=== PATIENT | male | born 1950 | race Caucasian/White ===

== ENCOUNTER 2025-04-06 07:49 | Emergency (ER) | payer MEDICARE, OTHER, SELFPAY ==
[2025-04-06 07:59] VITALS: BP 130/76
[2025-04-06] MEDS: ATIVAN 0.5 MG PO (09:33)
[2025-04-06 09:36] VITALS: BP 133/69
[2025-04-06 10:00] VITALS: BP 124/63
--- NOTE | 2025-04-06 11:40 | ED.GENMED ---
History of Present Illness
General
Chief Complaint: Social Service Referral
Source: patient, records and ambulance crew
Exam Limitations: none
Time Seen by Provider: 04/06/25 08:18
Nursing documentation reviewed up to this point in time: agreed with
History of Present Illness
History of Present Illness:
75-year-old male presents emergency department due to combative behavior. He arrives and is somewhat cooperative with exam smells of urine.
Past History
Past History
ED Past Medical History: Hypercholesterolemia and Other (Alzheimer's dementia)
Social History
Tobacco: Non-smoker
Alcohol: None
Drug: None
Living: care home
Employment: Retired
Review of Systems
Review of Systems
Allergies reviewed?: Yes
Unable to obtain full review of systems at this time due to: dementia
All Other Systems: Not applicable
Constitutional: Denies fever
Phy Exam
Physical Exam
Physical Exam:
Physical Exam
General: no apparent distress, not acutely ill
Neck: supple. no meningeal signs. normal posterior pharynx
Heart: s1/s2 regular rate and rhythm, no murmur. equal radial
pulses.
HEENT: Pupils equal round reactive to light, EOMI
Lungs: no acute respiratory distress. clear bilaterally
Abdomen: normal bowel sounds. not tender. no CVAT
Neuro: alert and oriented to person and place. no focal neurological deficits cranial nerves II through XII intact
Skin: no rash
Psychiatric: well kept. interactive and cooperative with exam but refuses labs
Extremities: no edema. no calf tenderness. negative homans. good distal pulses
Course
Orders/Labs/Results
Orders:
Orders
04/06/25 08:44
Lorazepam [Ativan] 0.5 mg PO NOW STA
04/06/25 08:44
04/06/25 08:44
Vital Signs
Initial and Last Documented VS:
Initial Vital Signs
Temp Pulse Resp BP Pulse Ox
98.1 F 70 18 130/76 99
04/06/25 07:59 04/06/25 07:59 04/06/25 07:59 04/06/25 07:59 04/06/25 07:59
Last Documented Vital Signs
Temp Pulse Resp BP Pulse Ox
98.1 F 70 18 124/63 98
04/06/25 07:59 04/06/25 07:59 04/06/25 07:59 04/06/25 10:00 04/06/25 11:43
MDM/Problems Addressed
Differential Diagnosis Includes:
Electrolyte abnormality, dementia
MDM/Problems Addressed:
75-year-old male with dementia, cooperative in ED except with lab work. No indication for further workup and stable for discharge home to neuro
Chronic conditions affecting care: Other (Dementia)
*Pulse Oximetry
SaO2: 98
Oxygen Mode of Delivery: Room air
Patient hypoxic: no
*Critical Care Note
Total Time (30-74mins, 75-104mins- exclusive of procedures): Not Applicable
Data Reviewed
Further Testing Considered But Not Given:
CT head not indicated
Patient Management
Social determinants of health affecting care: Living situation and Poor social support
Escalation/DeEscalation of care consider admission/obs:
Admit not indicated
ED Attending Note
-
Portions of this chart may have been created with voice recognition software.� Occasional wrong word or��sound alike� substitutions may have occurred due to the inherent limitations of voice recognition software.
Discharge Plan
Departure
Patient Disposition: Jail/SNF
Date of Disposition: 04/06/25
Time of Disposition: 11:41
Patient with high blood pressure during this ER visit?: Yes
Condition: Good
Discharge Problem:
Agitation due to dementia
Instructions: Dementia - ED (DC), BLOOD PRESSURE
Referrals:
Ry Winston DO [Family Provider, Internal Medicine] - Call in 1-3 days for appt
Interventions
Interventions:
*Risk Screen - Suicide Last Done: 04/06/25 08:00
*General Assessment Last Done: 04/06/25 08:00
*Neglect/Abuse Screening Last Done: 04/06/25 08:00
*ED- Fall Risk Assessment Last Done: 04/06/25 08:00
*ED COVID-19 Vaccine History Last Done: 04/06/25 08:00
*Nursing Disposition Last Done: 04/06/25 13:38
ED-Psychological Assessment Last Done: 04/06/25 08:00
Discharge Date and Time
Discharge Date/Time: 04/06/25 13:15
Print Language: SCOTTISH
== END 2025-04-06 13:15 ==
LOC: EMR 07:49
PROVIDERS: EMERGENCY PHYSICIAN Emergency Medicine; FAMILY PHYSICIAN Internal Medicine Geriatric Medicine
DX: G30.9 Alzheimer's disease, unspecified (principal); F02.811 Dementia in other diseases classified elsewhere, unspecified severity, with agitation; E78.00 Pure hypercholesterolemia, unspecified; Z60.8 Other problems related to social environment
CPT/HCPCS: 99283